=== PATIENT | female | born 2000 | race Caucasian/White ===

== ENCOUNTER 2022-07-20 10:51 | Day surgery (SDC) | payer OTHER ==
[2022-07-20 11:28] VITALS: BMI 41.5
== END 2022-07-20 12:30 | disposition home or self-care (01) ==
LOC: CSHLD/OP 10:51
PROVIDERS: ATTEND Obstetrics & Gynecology
DX: O99.350 Diseases of the nervous system complicating pregnancy, unspecified trimester (principal); G43.909 Migraine, unspecified, not intractable, without status migrainosus; Z88.0 Allergy status to penicillin; Z88.8 Allergy status to other drugs, medicaments and biological substances; Z3A.00 Weeks of gestation of pregnancy not specified
CPT/HCPCS: 99282